=== PATIENT | female | born 1985 | race Two or more races ===

== ENCOUNTER 2019-12-18 14:22 | Emergency (ER) | payer OTHER ==
[~2019-12-18] VITALS: Ht 160 cm; Wt 52.2 kg
== END 2019-12-18 18:29 | disposition home or self-care (01) ==
LOC: ER 14:22
DX: R16.0 Hepatomegaly, not elsewhere classified (principal); R10.11 Right upper quadrant pain

== ENCOUNTER 2021-10-09 13:41 | Outpatient (CLI) | payer OTHER | END 2021-10-09 13:56 | disposition home or self-care (01) | LOC: MAMO-SONO 13:41 | PROVIDERS: ATTEND Obstetrics & Gynecology | DX: N60.11 Diffuse cystic mastopathy of right breast (principal) ==

== ENCOUNTER 2022-09-03 10:58 | Outpatient (CLI) | payer OTHER | END 2022-09-03 11:20 | disposition home or self-care (01) | LOC: TOM 10:58 | PROVIDERS: ATTEND Obstetrics & Gynecology | DX: R10.2 Pelvic and perineal pain (principal) ==

== ENCOUNTER 2022-09-04 15:08 | Inpatient (IN) | payer OTHER ==
[~2022-09-04] VITALS: Ht 160 cm; Wt 52.2 kg
== END 2022-09-07 11:25 | disposition home or self-care (01) | DRG 392 ==
LOC: OB/GYN 15:08
PROVIDERS: ADMIT Obstetrics & Gynecology; ATTEND Obstetrics & Gynecology
DX: R10.11 Right upper quadrant pain (principal); Z20.822 Contact with and (suspected) exposure to COVID-19

== ENCOUNTER 2023-08-14 13:57 | Outpatient (CLI) | payer OTHER | END 2023-08-14 14:04 | disposition home or self-care (01) | LOC: SONOGRAMA 13:57 | DX: M75.101 Unspecified rotator cuff tear or rupture of right shoulder, not specified as traumatic (principal); M25.512 Pain in left shoulder; Z88.0 Allergy status to penicillin ==

== ENCOUNTER 2024-07-21 14:45 | Emergency (ER) | payer OTHER ==
[~2024-07-21] VITALS: Ht 160 cm; Wt 52.2 kg
[2024-07-21] MEDS ORDERED: FAMOTIDINE/PF 20 MG in 0.9 % SODIUM CHLORIDE 8 ML IV PUSH STA (16:24)
[2024-07-21] MEDS ORDERED: ONDANSETRON HCL 2 MG/ML VIAL ONE (16:30)
[2024-07-21] MEDS ORDERED: KETOROLAC TROMETHAMINE 30 MG VIAL ONE (16:30)
[2024-07-21] MEDS ORDERED: ONDANSETRON HCL 2 MG/ML VIAL IV ONE (16:30)
[2024-07-21] MEDS ORDERED: FAMOTIDINE/PF 20 MG/2 ML VIAL ONE (16:30)
[2024-07-21] MEDS ORDERED: KETOROLAC TROMETHAMINE 30 MG VIAL IV ONE (16:30)
[2024-07-21] MEDS ORDERED: 0.9 % SODIUM CHLORIDE 1,000 ML IV SCH (16:30)
[2024-07-21 16:53] LABS: PH,URINE 7.5 (5.0-8.0); URINE APPEARANCE Clear; URINE BILIRRUBIN Negative (NEGATIVE); URINE BLOOD Negative; URINE COLOR Yellow; URINE GLUCOSE Negative (NEGATIVE); URINE KETONE Negative (NEGATIVE); URINE LEUKOCYTE Negative; URINE NITRATE Negative; URINE PROTEIN Negative (NEGATIVE); URINE UROBILINOGEN 0.2 E.U./dl
[2024-07-21 16:57] LABS: URINE BACTERIA 101.4 uL (0.0-1933)
[2024-07-21 17:00] LABS: URINE EPITHELIAL CELLS 0.9 uL (0.0-38.8); URINE RBC 0.7 uL (0.0-20.8); URINE WBC 0.1 uL (0.0-23.2)
[2024-07-21 17:02] LABS: HEMATOCRIT 40.6 % (36.0-45.00); HEMOGLOBIN 14.1 g/dL (12.0-15.00); MEAN CELL VOLUME 99.7 fL (80.00-100.00); MEAN CORPUSCULAR HEMOGLOBIN 34.7 pg (27.00-32.0); MEAN CORPUSCULAR HGB CONC 34.8 g/dl (32.0-36.0); PLATELET COUNT 284 K/uL (150-450); RED BLOOD COUNT 4.07 M/uL (4.00-6.00)
[2024-07-21 17:21] LABS: INR 0.95; PARTIAL THROMBOPLASTIN TIME 25.5 SECONDS (22.0-34.0); PROTHROMBIN TIME 10.4 SECONDS (9.0-11.5)
[2024-07-21 17:26] LABS: ALBUMIN 3.9 gm/dL (3.4-5.0); ALKALINE PHOSPHATASE 69 U/L (50-136); ALT/SGPT 29 U/L (12-78); AMYLASE 65 U/L (25-115); ANION GAP 7 (10.0-20.0); AST/SGOT 25 U/L (15-37); BILIRUBIN TOTAL 0.18 mg/dL (0.3-1.2); BILIRUBIN,CONJUGATED < 0.10 mg/dL (0.0-0.2); BILIRUBIN,UNCONJUGATED 0.08 mg/dL (0.0-0.6); BLOOD UREA NITROGEN 9 mg/dL (7-18); BUN CREA RATIO 11 (7.0-25.0); CARBON DIOXIDE 29 mEq/L (21-32); CHLORIDE 107 mmol/L (98-107); CREATININE SERUM 0.83 mg/dL (0.55-1.02); GFR 76.53; GLOBULINA 3.7 G/DL (2.4-3.5); GLUCOSE FASTING 99 mg/dL (65-100); LIPASE 40 U/L (13-75); OSMOLALITY SERUM 276 MOSM/KG (275-295); POTASSIUM 3.85 mEq/L (3.5-5.1); SODIUM 139 mmol/L (136-145); TOTAL PROTEIN 7.6 gm/dL (6.4-8.2)
[2024-07-21] MEDS ORDERED: PEPCID AC20 MG PO (18:58)
[2024-07-21] MEDS ORDERED: DICLOFENAC SODI75 MG PO (18:58)
== END 2024-07-21 19:08 | disposition home or self-care (01) ==
LOC: ER 14:47
PROVIDERS: General Practice
DX: R10.11 Right upper quadrant pain (principal); N20.0 Calculus of kidney; Z88.0 Allergy status to penicillin